=== PATIENT | male | born 1960 | race Caucasian/White ===

== ENCOUNTER 2017-08-21 02:06 | Inpatient (IN) | payer BC ==
[2017-08-21] VITALS (7 sets, daily range): BP systolic 124–172; BP diastolic 85–94; Ht 172.7 cm; Wt 88.2 kg
[~2017-08-21] VITALS: Ht 172.7 cm; Wt 88.2 kg
[2017-08-21 03:40] LABS: CALCIUM 8.4 mg/dL (8.5-10.1); CARBON DIOXIDE 24.5 mmol/L (21-32); CHLORIDE SERUM 105 mmol/L (98-107); CREATININE SERUM 0.7 mg/dL (0.7-1.3); GFR1 > 60 mL/min; GLUCOSE SERUM 110 mg/dL (74-106); MAGNESIUM 1.8 mg/dL (1.8-2.4); POTASSIUM SERUM 3.4 mmol/L (3.5-5.1); SODIUM SERUM 140 mmol/L (136-145)
[2017-08-21 03:50] LABS: BASOPHIL % 0.5 % (0-2); PLATELET COUNT 173 x10^3mcL (130-400); RED CELL DISTRIBUTION WIDTH 12.4 % (11.5-14.5)
[2017-08-21] MEDS ORDERED: HYDROCHLOROTHIA25 MG (04:23)
[2017-08-21 08:57] LABS: CHOLESTEROL/HDL RATIO 4.6; PHOSPHOROUS 3.6 mg/dL (2.5-4.9)
[2017-08-21 09:03] LABS: T3 TOTAL 1.11 ng/mL
[2017-08-21 10:35] LABS: microscopic required? NO
[2017-08-21 10:59] LABS: FREE T4 1.1 ng/dL (0.76-1.46); FREE THYROXINE INDEX 2.7 ug/dL (1.4-4.5); T4(THYROXINE) 7.8 ug/dL (4.7-13.3)
[2017-08-21 12:08] LABS: UA SPECIFIC GRAVITY 1.015 (1.005-1.035); urine erythrocyte NEGATIVE (NEGATIVE)
[2017-08-21 12:34] LABS: AMPHETAMINE QUAL UR NONE DETECTED (NEG <=1000)
[2017-08-22 08:50] VITALS: BP 160/85
[2017-08-22 10:19] VITALS: BP 144/89
[2017-08-22 11:54] LABS: BASOPHIL % 0.4 % (0-2); PLATELET COUNT 182 x10^3mcL (130-400); RED CELL DISTRIBUTION WIDTH 12.9 % (11.5-14.5)
[2017-08-22 13:48] VITALS: BP 135/98
[2017-08-22] MEDS ORDERED: LIPI20 PO (13:49)
[2017-08-22] MEDS ORDERED: HYDROCHLOROTHIA25 MG PO (13:50)
[2017-08-22 13:56] VITALS: BP 135/98
[2017-08-22 16:12] LABS: CALCIUM 9.1 mg/dL (8.5-10.1); CARBON DIOXIDE 27.4 mmol/L (21-32); CHLORIDE SERUM 102 mmol/L (98-107); CREATININE SERUM 0.8 mg/dL (0.7-1.3); GFR1 > 60 mL/min; GLUCOSE SERUM 85 mg/dL (74-106); POTASSIUM SERUM 4.2 mmol/L (3.5-5.1); SODIUM SERUM 139 mmol/L (136-145)
== END 2017-08-22 16:40 | disposition home or self-care (01) | DRG 305 ==
LOC: ED 02:06 → DU 04:30
PROVIDERS: Emergency Medicine; Student in an Organized Health Care Education/Training Program
DX: I16.0 Hypertensive urgency (principal); I10 Essential (primary) hypertension; E87.6 Hypokalemia; Z83.3 Family history of diabetes mellitus; R00.1 Bradycardia, unspecified; E66.9 Obesity, unspecified; Z68.30 Body mass index [BMI] 30.0-30.9, adult; Z91.19 Patient's noncompliance with other medical treatment and regimen
CPT/HCPCS: 83880; 84439; J3475; J7030; Q0092